=== PATIENT | female | born 1990 | race Caucasian/White ===

== ENCOUNTER 2017-09-17 10:36 | Emergency (ER) | payer BC, OTHER ==
[~2017-09-17] VITALS: Ht 157.5 cm; Wt 63.5 kg
[2017-09-17] MEDS ORDERED: IV NORMAL SALINE 1000 ML BAG IV ONE ×2 (10:45→12:00)
[2017-09-17] MEDS ORDERED: ONDANSETRON 4 MG/2 ML VIAL IV ONE ×2 (10:45→12:00)
[2017-09-17] MEDS ORDERED: ONDANSETRON 4 MG/2 ML VIAL ONE ×2 (10:49→12:06)
[2017-09-17] MEDS ORDERED: MORPHINE SULFATE 2 MG/1 ML DISP.SYRIN IV ONE (11:00)
[2017-09-17] MEDS ORDERED: PANTOPRAZOLE SODIUM 40 MG VIAL IV ONE (11:00)
[2017-09-17] MEDS ORDERED: MORPHINE SULFATE 2 MG/1 ML DISP.SYRIN ONE (11:16)
[2017-09-17] MEDS ORDERED: PANTOPRAZOLE SODIUM 40 MG VIAL ONE (11:17)
[2017-09-17 11:21] LABS: BASOPHILS % (AUTO) 0.2 % (0.0-2.0); EOSINOPHILS % (AUTO) 0.1 % (0.0-7.0); HEMATOCRIT 34.8 % (31.2-41.9); HEMOGLOBIN 11.9 g/dL (10.9-14.3); LYMPHOCYTES % (AUTO) 11.2 % (20.5-51.5); MEAN CORPUSCULAR HEMOGLOBIN 31.1 uug (24.7-32.8); MEAN CORPUSCULAR HGB CONC 34 g/dL (32.3-35.6); MEAN CORPUSCULAR VOLUME 91.2 fL (75.5-95.3); MONOCYTES # (AUTO) 0.4 K/uL (2.0-10.0); MONOCYTES % (AUTO) 3.8 % (0.0-11.0); NEUTROPHILS # (AUTO) 7.8 K/uL (1.8-8.9); NEUTROPHILS % (AUTO) 84.7 % (38.5-71.5); PLATELET COUNT (AUTO) 194 K/uL (179-408); RED BLOOD CELL COUNT(AUTO) 3.81 MIL/uL (3.63-4.92); WHITE BLOOD COUNT (AUTO) 9.2 K/uL (3.8-11.8)
[2017-09-17 11:28] LABS: CREATININE 0.8 mg/dL (0.6-1.3); POTASSIUM 4.6 mmol/L (3.5-5.1)
[2017-09-17 11:33] LABS: BILIRUBIN,DIRECT 0.1 mg/dL (0.0-0.2); BILIRUBIN,TOTAL 0.5 mg/dL (0.2-1.0); TOTAL PROTEIN, SERUM 6.7 g/dL (6.4-8.2)
--- NOTE | 2017-09-17 11:33 | NUR ---
pt is in room 1b. dr gallegos evaluated the pt.
--- NOTE | 2017-09-17 13:31 | NUR ---
PT WAS D/C TO HOME, AFTER DR HAMPTON RE-EVALUATION. D/C INSTRUCTUONS GIVEN TO THE PT AND TO HER FAMILY.
[2017-09-17 13:34] VITALS: BP 128/71
== END 2017-09-17 13:35 | disposition home or self-care (01) ==
LOC: ER 10:36
DX: K29.70 Gastritis, unspecified, without bleeding (principal); Z88.0 Allergy status to penicillin
CPT/HCPCS: 36415; 80048; 80076; 83690; 84703; 85025; 96361; 96374; 96375; 96376; 99285; A4663; C9113; J2270; J2405 ×2; J7030 ×2